=== PATIENT | male | born 1980 | race Caucasian/White ===

== ENCOUNTER 2019-04-09 09:17 | Emergency (ER) | payer OTHER ==
[~2019-04-09] VITALS: Ht 190.5 cm; Wt 90.7 kg
[2019-04-09] MEDS ORDERED: LIDOCAINE 1% INJ 20 ML 20 ML VIAL ONE (09:36)
--- NOTE | 2019-04-09 09:37 | ED Upper Extremity ---
General Chief Complaint: Upper Extremity Stated Complaint: WC LT FINGER CRUSH/LAC INJ Source: patient Exam Limitations: no limitations History of Present Illness Date Seen by Provider: Apr 09, 2019 Time Seen by Provider: 09:32 Initial Comments Got his left little finger pinched in crushed between 2 pieces of metal at work. He sustained a laceration to the palmar aspect of the DIP joint. This is approximately 2 cm long. No other injury Allergies and Home Medications Allergies Coded Allergies: No Known Drug Allergies (Unverified , 04/09/19) Patient Home Medication List Home Medication List Reviewed: Yes Review of Systems Constitutional: no symptoms reported Respiratory: no symptoms reported Cardiovascular: no symptoms reported Skin: see HPI Past Gfqvnwt-Dltazu-Ispfgr Hx Patient Social History Alcohol Use: Denies Use Physical Exam Vital Signs Vital Signs - First Documented 04/09/19 09:28 Temp 98.8 Pulse 73 Resp 16 B/P (MAP) 137/89 (105) Pulse Ox 99 O2 Delivery Room Air Capillary Refill : Height, Weight, BMI Height: '" Weight: lbs. oz. kg; BMI Method: General Appearance: WD/WN, no apparent distress Cardiovascular: regular rate, rhythm Respiratory: lungs clear Hand: laceration (there is a 2 cm laceration over the volar aspect of the left third DIP joint.) Procedures/Interventions Wound Location: Upper Extremities Other Wound Location DIP joint left third finger Wound Length (cm): 2 Wound's Depth, Shape: sub Q Wound Explored: clean Irrigated w/ Saline (ccs): 20 Volume Anesthetic (ccs): 5 Wound Debrided: minimal Suture: Ethlion Suture Size: 5-0 Number of Sutures: 4 Sterile Dressing Applied?: Yes Progress/Results/Core Measures Results/Orders My Orders Orders - ERIC MEDELLIN MD Finger(S) (04/09/19 09:31) DiphtEssence(Acell),Tet Adult (Boostrix (04/09/19 09:45) Lidocaine 1% Inj 20 Ml (Xylocaine 1% Inj (04/09/19 09:36) Lidocaine 1% Inj 20 Ml (Xylocaine 1% Inj (04/09/19 10:00) Vital Signs/I&O 04/09/19 09:28 Temp 98.8 Pulse 73 Resp 16 B/P (MAP) 137/89 (105) Pulse Ox 99 O2 Delivery Room Air Departure Impression Primary Impression: left third finger laceration Disposition: 01 HOME, SELF-CARE Condition: Stable Departure-Patient Inst. Decision time for Depature: 09:56 Referrals: NO,LOCAL PHYSICIAN (PCP) Primary Care Physician Patient Instructions: Laceration Repair Add. Discharge Instructions: Keep bandage clean and dry. Daily dressing changes. Sutures out in 10-14 days. All discharge instructions reviewed with patient and/or family. Voiced un derstanding. ERIC MEDELLIN MD Apr 09, 2019 09:37
[2019-04-09] MEDS ORDERED: TETANUS,DIPTH,PERTUSS P/F (BOOSTRIX) 0.5 ML VIAL IM ONE (09:45)
--- NOTE | 2019-04-09 09:46 | Diagnostic Imaging Report ---
CLINICAL INDICATION: Patient smashed finger in hinged equipment at work. Attention third digit. EXAM: X-ray of the left third finger, 3 views. COMPARISON: None. FINDINGS AND IMPRESSION: 1: There is no acute fracture or dislocation. There is no significant bone or joint abnormality. 2: The remainder of the visualized portions of the left hand is unremarkable. Dictated by: Dictated on workstation # [id number]
[2019-04-09] MEDS ORDERED: LIDOCAINE 1% INJ 20 ML 20 ML VIAL INJ ONE (10:00)
[2019-04-09 10:10] VITALS: BP 137/89
== END 2019-04-09 10:10 | disposition home or self-care (01) ==
LOC: ER FS 09:19
DX: S61.313A Laceration without foreign body of left middle finger with damage to nail, initial encounter (principal); Z23 Encounter for immunization; W23.1XXA Caught, crushed, jammed, or pinched between stationary objects, initial encounter; Y92.59 Other trade areas as the place of occurrence of the external cause; Y99.0 Civilian activity done for income or pay
CPT/HCPCS: 12001; 73140; 90715

== ENCOUNTER 2019-04-20 07:33 | Emergency (ER) | payer OTHER ==
[~2019-04-20] VITALS: Ht 190.5 cm; Wt 90.7 kg
[2019-04-20 07:50] VITALS: BP 123/77
== END 2019-04-20 07:50 | disposition home or self-care (01) ==
LOC: EDUNIT# 07:33 → ER FS 07:34
DX: S61.213D Laceration without foreign body of left middle finger without damage to nail, subsequent encounter (principal); X58.XXXD Exposure to other specified factors, subsequent encounter